=== PATIENT | female | born 1995 | race Caucasian/White ===

== ENCOUNTER → 2017-07-04 | Outpatient (CLI) | payer BC | END | disposition home or self-care (01) | LOC: C.PAPS 16:39 | PROVIDERS: ATTEND Physician Assistant | DX: Z01.419 Encounter for gynecological examination (general) (routine) without abnormal findings (principal) ==

== ENCOUNTER → 2017-07-04 | Outpatient (CLI) | payer BC ==
[2017-07-07 13:45] LABS: CHLAMYDIA TRACH RNA*** NOT DETECTED (NOT DETECTED); GC (NEIS GONORRHOEAE)RNA** NOT DETECTED (NOT DETECTED)
== END | disposition home or self-care (01) ==
LOC: C.LABSPEC 15:58
PROVIDERS: ATTEND Physician Assistant
DX: Z01.419 Encounter for gynecological examination (general) (routine) without abnormal findings (principal)

== ENCOUNTER → 2017-10-30 | Outpatient (CLI) | payer OTHER ==
--- NOTE | 2017-10-30 08:24 | DIAGNOSTIC IMAGING REPORT ---
ABDOMINAL ULTRASOUND, RIGHT UPPER QUADRANT HISTORY: Left upper quadrant pain. Epigastric pain. COMPARISON: None. FINDINGS: Liver is sonographically normal. The size of the spleen is normal, measuring 11.7 cm. There is no perisplenic fluid. The pancreas is within normal limits although the head and tail are slightly obscured. There is no biliary ductal dilatation. Common bile duct measures 3 mm in caliber. The gallbladder is normal. There are no gallstones. IMPRESSION: 1. No significant abnormality identified within the right upper quadrant. 2. Normal sonographic appearance of the spleen. Electronically signed by: Mendoza Green M.D. 10/30/2017 8:23 AM Dictated Date/Time: 10/30/2017 8:22 AM
== END | disposition home or self-care (01) ==
LOC: C.ULTR 07:40
PROVIDERS: ATTEND Physician Assistant
DX: R10.13 Epigastric pain (principal); R10.12 Left upper quadrant pain

== ENCOUNTER 2025-01-22 04:53 | Inpatient (IN) ==
[2025-01-22] MEDS ORDERED: OXYTOCIN 30 UNITS/NSS 30 UNITS/500 ML BAG IV PRN ×2 (05:33→08:49)
[2025-01-22] MEDS ORDERED: LIDOCAINE 1% LOCAL 20 ML VIAL INFIL PRN (05:33)
[2025-01-22] MEDS: LACTATED RINGER'S 1,000 ML IV PRN (05:50)
[2025-01-22 06:20] LABS: Creatinine Urine Random 256.6 mg/dl; Protein Creatinine Ratio Urine 0.2 (0-0.2); Total Protein Urine Random 50.8 mg/dl (0-11.9)
[2025-01-22 06:46] LABS: Hematocrit (blood only) 37.4 % (37.0-47.0); Hemoglobin 12.3 g/dl (12.0-16.0); Mean Corpuscular Hemoglobin 28.1 pg (25.0-34.0); Mean Corpuscular Hgb Conc 32.9 g/dL (32.0-36.0); Mean Corpuscular Volume 85.4 fL (80.0-100.0); Mean Platelet Volume 10.7 fL (9.4-12.4); Platelet Count 217 K/uL (130-400); RDW Coefficient of Variation 13.7 % (11.5-14.5); RDW Standard Deviation 42.5 fL (36.4-46.3); Red Blood Count 4.38 M/uL (4.20-5.40); White Blood Count 15.59 K/ul (4.8-10.8)
--- NOTE | 2025-01-22 06:54 | History & Physical Report ---
Date of Service January 22, 2025 Assessment & Plan (1) Encounter for supervision of normal intrauterine in primigravida, antepartum: (2) Heterozygous factor V Leiden mutation: Plan 30 yo G1 at 40 wga presents in labor Initial bp mild range, repeat wnl. Will get labs Fetus cat 1 Labor - augment prn GBS neg desires epidural Admission and Anticipated Discharge Date Admission Date: January 22, 2025 History of Present Illness Chief Complaint: labor Primary Care Provider: Melina Cortez MD 30 yo G1 at 40 wga presents w/ ctx increasing in frequency and intensity, vomiting. +FM; had a gush of fluid while vomiting but none since. 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 denies hx stis Allergies Allergy/AdvReac Type Severity Reaction Status Date / Time Penicillins Allergy Mild Hives Verified 01/22/25 05:23 Home Medications Medication Instructions Recorded Confirmed Type [id number] 1 tab PO DAILY 06/05/24 01/22/25 History [ Plus] Patient History Medical History (Updated 01/21/25 @ 16:23 by Betsy Traore RN) Factor V deficiency Skin lesion Scar conditions and fibrosis of skin Dysplasia of cervix, low grade (MEGHANA 1) LGSIL (low grade squamous intraepithelial dysplasia) Family history of factor V Leiden mutation Surgical History H/O colposcopy with cervical biopsy 2019, meghana 1 [place] teeth extracted Family History Father Myocardial infarction Hypertension Grandfather (Paternal) Myocardial infarction Mother Factor 5 Leiden mutation, heterozygous Aunt Factor 5 Leiden mutation, heterozygous Deep vein thrombosis Other Coronary heart disease Denies family history of Ovarian cancer Breast cancer Colorectal cancer Social History Smoking Status: Never smoker Do You Dip or Chew Tobacco: No; Hx Alcohol Use: No Hx Substance Use: No Preferred Language: Guinean Communication Ability: Effective 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: No Beliefs That Will Affect Care: None marital status: Single marital status details: FOB: Rishi Agudelodebora (29) [phone] Current Living Situation: Significant Other Current Living Situation Comment: Lives with FOB- no pets current occupational status: employed current occupation: [employer] Other Information That Helps Us Care for You: No Feels Safe at Home: Yes Safety Concerns: Feels Safe At This Time Assistive Devices: Contacts and Glasses Physical Exam Genitourinary: OB Exam Monitor Tracing: + external FHT monitor used, + external uterine monitor used (q4-5) and + category I (140/mod/+accel/-decel) SVE by rn 2/-2 Results & Data Vital Signs (Past 12 Hours) Vital Signs Temp Pulse Resp BP O2 Del Method 01/22/25 05:56 66 134/74 01/22/25 05:14 64 157/89 H 01/22/25 05:12 18 01/22/25 05:12 98.2 F 18 01/22/25 05:09 98.2 F 64 18 157/89 H Room Air Laboratory Results OB Labs: Blood Type A Negative 06/12/24 Antibody Screen NEGATIVE 11/03/24 Hgb 11.7 g/dl (12.0-16.0) L 11/03/24 Hct 35.7 % (37.0-47.0) L 11/03/24 MCV 86.3 fL (80.0-100.0) 06/12/24 Plt Count 226 K/uL (130-400) 06/12/24 Rubella IgG Antibody Immune (Immune) 06/12/24 Treponema pallidum Ab Negative (Negative) 11/03/24 Hep Bs Antigen Negative (Negative) 06/12/24 Hepatitis C Antibody Negative (Negative) 06/12/24 HIV 1&2 Ab/P24 Ag 4thGn Negative (Negative) 06/12/24 Glucose 1 Hr 50 gm 95 mg/dl (70-130) 11/03/24 OB Optional Labs: Chlamydia trachomatis RNA Not Detected (NotDetected) 06/12/24 Neisseria gonorrhoeae RNA Not Detected (NotDetected) 06/12/24 GBS neg Coding Level of Care Code None Diagnoses Encounter for supervision of normal intrauterine in primigravida, antepartum Z34.00 Heterozygous factor V Leiden mutation D68.51
[2025-01-22 06:56] LABS: Albumin Globulin Ratio 1.1 (0.9-2); Albumin Level 3.4 gm/dl (3.4-5.0); BUN Creatinine Ratio 15.4 (10-20); Bilirubin,Total 0.6 mg/dl (0.2-1.0); Calcium 8.6 mg/dl (8.6-10.3); Creatinine Clr Calc Pharmacy 144.6 ml/min; Potassium 3.9 mmol/L (3.5-5.1); Total Protein 6.4 gm/dl (6.0-8.3)
[2025-01-22] MEDS ORDERED: SODIUM CHLORIDE 0.9% 100 ML IV PRN ×2 (07:07→16:35)
[2025-01-22] MEDS: BUPIVACAINE 0.25% PF 30 ML VIAL ONE (07:38)
[2025-01-22] MEDS: SODIUM CHLORIDE 0.9% PF INJ 10 ML VIAL ONE (07:38)
[2025-01-22] MEDS: fentANYL 2 MCG/ML BUPIVacaine 0.125%-NSS 100ML BAG ONE (07:38)
[2025-01-22] MEDS ORDERED: NALOXONE HCL 1 MG in SODIUM CHLORIDE 0.9% 1,000 ML IV PRN ×2 (07:46→14:49)
[2025-01-22] MEDS ORDERED: NALBUPHINE HCL INJ 10 MG/ML AMP IV PRN ×2 (07:46→14:49)
[2025-01-22] MEDS ORDERED: ePHEDrine sulfate 50 MG/ML AMP IV PRN ×2 (07:46→14:49)
[2025-01-22] MEDS ORDERED: fentANYL 2 MCG/ML BUPIVacaine 0.125%-NSS 100ML BAG EPI PRN (07:46)
[2025-01-22] MEDS ORDERED: ONDANSETRON INJ 2 MG/ML 2 ML VIAL IV PRN ×2 (07:46→14:49)
[2025-01-22] MEDS ORDERED: LIDOCAINE 2% MPF LOCAL 5 ML VIAL EPI PRN (07:46)
[2025-01-22] MEDS ORDERED: diphenhydrAMINE 50 MG/ML VIAL IV PRN ×2 (07:46→14:49)
[2025-01-22] MEDS ORDERED: NALOXONE HCL 0.4 MG/1 ML VIAL/CARP IV PRN ×2 (07:46→14:49)
[2025-01-22] MEDS ORDERED: fentaNYL citrate PF 100 MCG/2 ML VIAL EPI PRN (07:46)
[2025-01-22] MEDS ORDERED: SODIUM CHLORIDE 0.9% PF INJ 10 ML VIAL EPI PRN (07:46)
[2025-01-22] MEDS ORDERED: BUPIVACAINE 0.25% PF 30 ML VIAL EPI PRN (07:46)
[2025-01-22] MEDS ORDERED: ROPIVACAINE 0.5% PF 5 MG/ML 20 ML VIAL EPI PRN (07:46)
--- NOTE | 2025-01-22 07:46 | Anesthesiology Consultation ---
Date of Service January 22, 2025 Assessment & Plan Chart Review Chart Review: Patient NOT seen in Pre Admission Testing and Acceptable Risk for Labor Epidural Consults Requested none ASA ASA2 Proposed Anesthesia Anesthesia Type: Labor Epidural Risk / Benefits Reviewed With: PT / POA / Parent / Guardian, Accepts Plan and Informed Consent Obtained History Height/Weight Height: 5 ft 3 in Weight: 100.698 kg Allergies Allergy/AdvReac Type Severity Reaction Status Date / Time Penicillins Allergy Mild Hives Verified 01/22/25 05:23 Medications Home Medications Medication Instructions Recorded Confirmed Last Taken [id number] 1 tab PO DAILY 06/05/24 01/22/25 01/21/25 21:00 [ Plus] Active Medications Generic Name Dose Route Start Last Admin Trade Name Freq PRN Reason Stop Dose Admin Lactated Ringer's 1,000 mls @ 125 mls/hr 01/22/25 05:33 01/22/25 07:02 Lr IV 01/23/25 05:32 125 mls/hr .Q8H PRN Administration L&D Protocol Protocol Past Medical History Medical History (Updated 01/21/25 @ 16:23 by Betsy Traore, ALYSSA) Factor V deficiency Skin lesion Scar conditions and fibrosis of skin Dysplasia of cervix, low grade (MEGHANA 1) LGSIL (low grade squamous intraepithelial dysplasia) Family history of factor V Leiden mutation Exercise / Class Metabolic Activity II 4-5 Yardwork/Stairs/Walk up hill Past Family History Family History Father Myocardial infarction Hypertension Grandfather (Paternal) Myocardial infarction Mother Factor 5 Leiden mutation, heterozygous Aunt Factor 5 Leiden mutation, heterozygous Deep vein thrombosis Other Coronary heart disease Denies family history of Ovarian cancer Breast cancer Colorectal cancer Past Surgical History Surgical History H/O colposcopy with cervical biopsy 2019, meghana 1 [place] teeth extracted Past Anesthesia History No Hx of Anesthesia Complications and No Family Hx of Anesthesia Complications History of PONV No Hx of PONV and No Hx of Motion Sickness Social History Smoking Status: Never smoker Do You Dip or Chew Tobacco: No Hx Alcohol Use: No Hx Substance Use: No substance use type: does not use Physical Exam Vital Signs Last Vital Signs Temp 36.9 C 01/22/25 07:03 Pulse 101 H 01/22/25 07:44 Resp 20 01/22/25 07:03 BP 100/60 01/22/25 07:44 Pulse Ox 99 01/22/25 07:42 O2 Del Method Room Air 01/22/25 05:09 ENMT Mouth: no dentition abnormality Thyromental Distance: > or= 3.5 Finger Breadths Mallampati Class: II Neck normal visual inspection Respiratory normal respiratory effort Auscultation: lungs clear to auscultation bilaterally Cardiovascular Rate/Rhythm: regular rate and regular rhythm Psychiatric Orientation: alert Testing Laboratory Results 01/22/25 05:49 01/22/25 05:49
--- NOTE | 2025-01-22 08:17 | Labor Progress Brief Note ---
Date of Service January 22, 2025 Subjective comfortable w/ epidural Assessment & Plan (1) Encounter for supervision of normal intrauterine in primigravida, antepartum: (2) Heterozygous factor V Leiden mutation: Plan 30 yo G1 at 40 wga presents in labor Initial bp mild range, repeat wnl. albs wnl Fetus cat 2but improved w/ repositioning and now reassuring Labor - augment prn, no forebag noted so suspect rom shortly before ctx worsened early this am as she had gush w/ vomiting GBS neg epidural in place Admission and Anticipated Discharge Date Admission Date: January 22, 2025 Physical Exam Genitourinary: Manual OB Exam: + cervical dilation 3 cm, + cervical effacement 80% and + station -2 OB Exam Monitor Tracing: + external FHT monitor used, + external uterine monitor used (q4-5) and + category II (140-145/mod/+accel/decel just occurred after epidural, recovered w/ reposit) Results & Data Vital Signs (Past 12 Hours) Vital Signs Temp Pulse Resp BP Pulse Ox O2 Del Method 01/22/25 08:12 67 100 01/22/25 08:07 73 100 01/22/25 08:02 78 100 01/22/25 08:00 62 18 98/52 L 01/22/25 07:57 76 100 01/22/25 07:55 75 97/54 L 01/22/25 07:52 93 H 99 01/22/25 07:50 82 20 100/54 L 01/22/25 07:47 99 H 100 01/22/25 07:45 20 01/22/25 07:45 20 01/22/25 07:44 101 H 100/60 01/22/25 07:42 101 H 97/56 L 99 01/22/25 07:40 90 18 105/61 01/22/25 07:38 100 H 108/65 01/22/25 07:37 97 H 99 01/22/25 07:36 86 114/68 01/22/25 07:34 78 121/70 01/22/25 07:32 89 100 01/22/25 07:27 84 100 01/22/25 07:04 67 124/67 01/22/25 07:03 20 01/22/25 07:03 98.4 F 20 01/22/25 05:56 66 134/74 01/22/25 05:14 64 157/89 H 01/22/25 05:12 18 01/22/25 05:12 98.2 F 18 01/22/25 05:09 98.2 F 64 18 157/89 H Room Air Coding Level of Care Code None Diagnoses Encounter for supervision of normal intrauterine in primigravida, antepartum Z34.00 Heterozygous factor V Leiden mutation D68.51
--- NOTE | 2025-01-22 10:40 | Communication Note ---
Date of Service: January 22, 2025 Patient had recurrent short decelerations she is ruptured membranes and presented in early labor for the previous provider she has epidural now her contraction pattern is somewhat hard to interpret so an IUPC is placed we will watch this carefully and determine if we can use Pitocin discussed the challenge of Pitocin if she is having decelerations with each contraction and that it may not be possible to use this
--- NOTE | 2025-01-22 10:53 | Communication Note ---
Date of Service: January 22, 2025 Contractions are 7 to 8 minutes apart and only some of them are adequate clearly she needs augmentation or we need to stop induction with each contraction she is having a heart rate deceleration as well and there is molding present I offered the option of Pitocin with the risk of aggravating the decelerations and the possibility of an emergency I also offered the option of stopping and performing a undercontrolled conditions while the baby is not in distress and she is clearly not an adequate labor now there are signs that this will not work out including the slow progress molding and lack of contractions I discussed the risks of I have left him some time to consider this they will let us know their decision section. The patient was counseled to the nature of the procedure including alternatives such as labor. Risks were discussed including bleeding infection injury to bowel bladder ureter vessels and even baby. Deep Vein thrombosis, pulmonary embolus discussed. Breakdown of incision reviewed. Deep vein thrombosis pulmonary embolus hernia and failure of the incision to heal were discussed Patient verbalized understanding of this and was given ample time to ask questions
[2025-01-22] MEDS: ACETAMINOPHEN 500 MG TAB PO SCH (11:29)
[2025-01-22] MEDS: LACTATED RINGER'S 1,000 ML IV SCH ×2 (11:37→14:05)
[2025-01-22] MEDS: ePHEDrine sulfate 50 MG/ML AMP ONE (11:50)
[2025-01-22] MEDS: fentaNYL citrate PF 100 MCG/2 ML VIAL ONE (11:50)
[2025-01-22] MEDS: BUPIVACAINE 0.25% PF 30 ML VIAL EPI STA (11:50)
[2025-01-22] MEDS: LIDOCAINE 2%/EPINEPHRINE 1:200,000 20 ML PF ONE (11:50)
[2025-01-22] MEDS: ACETAMINOPHEN 500 MG TAB ONE (11:51)
[2025-01-22] MEDS: CITRIC ACID/SODIUM CITRATE 15 ML UDC ONE (11:51)
[2025-01-22] MEDS: LIDOCAINE 2%/EPINEPHRINE 1:200,000 20 ML PF EPI STA (11:51)
[2025-01-22] MEDS: fentaNYL citrate PF 100 MCG/2 ML VIAL EPI STA (11:51)
[2025-01-22] MEDS: SODIUM CHLORIDE 0.9% PF INJ 10 ML VIAL EPI STA (11:51)
[2025-01-22] MEDS: AZITHROMYCIN 500 MG/255 ML BAG IV SCH (11:54)
[2025-01-22] MEDS: CITRIC ACID/SODIUM CITRATE 15 ML UDC PO SCH (12:21)
[2025-01-22] MEDS: ceFAZolin 3000MG 3,000 MG/72.5 ML BAG IV SCH (12:24)
[2025-01-22] MEDS ORDERED: ONDANSETRON INJ 2 MG/ML 2 ML VIAL ONE (12:30)
[2025-01-22] MEDS ORDERED: LIDOCAINE 2%/EPINEPHRINE 1:200,000 20 ML PF ONE (12:30)
[2025-01-22] MEDS ORDERED: OXYTOCIN 10 UNITS/ML VIAL ONE (12:44)
[2025-01-22] MEDS ORDERED: PHENYLEPHRINE HCL 10 MG/ML VIAL ONE (12:45)
[2025-01-22] MEDS ORDERED: MoRPHine SULFATE PF 1 MG/ML 10 ML AMP/VIAL ONE (12:48)
--- NOTE | 2025-01-22 13:27 | Operative Report ---
Post Operative Report Pre & Post Diagnosis Operation Date: 01/22/25 12:30 Pre-Op Diagnosis: primary section for intolerance to labor Post-Op Diagnosis: same I identified the patient and participated in the time-out.: Yes Procedure Operation Date: 01/22/25 12:30 Low segment transverse section Surgeon Kayla Gloria MD, FACOG Torpedo Shooter Maryam Enriquez Quantitative Blood Loss (QBL) 523 Findings Consistent with Post-Op Diagnosis Specimens Cord blood Cord gases Description of Procedure Regional anesthetic had been given by anesthesia patient was prepped and draped with a leftward tilt preoperative antibiotics had been given in appropriate timing by anesthesiology. Once the prep was allowed to fully dry timeout was performed. Pickups with teeth were used to test the incision area was found to be adequate for incision as the patient did not feel sharp pain. Scalpel was used to make a Pfannenstiel incision on the lower abdomen. We then cut through the subcutaneous fat down to the level of the anterior rectus sheath fascia this was cut in the midline and then extended laterally with the curved Monroy scissors. At this stage we then placed 2 Austin clamps on the anterior aspect of the fascia. Using the curved Monroy's we are able to dissect the fascia superiorly away from the rectus muscles. Care was taken to maintain hemostasis. Austin clamps were then placed to the inferior aspect of the anterior sheath of the fascia. Fascia was then dissected away from the rectus muscles inferiorly towards the pubic bone. A Austin was then placed in the midline both inferiorly and superiorly. This was to allow exposure by retraction rectus muscles were in the midline with were then able to cut through the peritoneum and then enter the peritoneal cavity. Opening was enlarged to allow exposure of the peritoneal cavity both superiorly and inferiorly. Once adequate space was obtained a bladder retractor was placed to expose the lower segment Metzenbaums were used to dissect the bladder flap inferiorly away from the uterus. This was done sharply bladder retractor was then repositioned to expose the lower segment of the uterus Fresh scalpel was used to make a low transverse incision on the uterus. Uterus was then entered bluntly with the operators finger, membranes ruptured and the opening was enlarged using the operators fingers bluntly pulling superiorly and inferiorly to allow exposure. Baby was delivered by first flexion of the head elevation of the head out of the pelvis and then pressure by the assistant cross country coach on the maternal abdomen. Baby's head was then delivered mouth and then nares were suctioned and then using gentle traction the baby was fully delivered. Live vigorous infant. Fluid was clear cord clamped and cut cord gases obtained cord blood obtained baby handed to pediatrics. Placenta removed was removed with traction we ensure the entire placenta was removed with a moist lap sponge into the uterus Uterus was then exteriorized. IV Pitocin had been started by anesthesia tone improved there were no extensions the uterus was then closed using 0 Monocryl in a 2 layer closure the first layer closed in a running locked fashion from left to right and then a second closure from left to right in a running nonlocked fashion. At this stage hemostasis was excellent. Uterus was placed back in the peritoneal cavity with suction irrigation out and inspection of the uterus at this stage revealed excellent hemostasis Retractors were removed urine color was clear at this stage of the case we inspected the rectus muscles they were hemostatic fascia was closed with 0 Vicryl subcutaneous fat was irrigated and closed with 3-0 Vicryl skin closed with 4-0 subcuticular Monocryl Adnexa appeared normal as did uterus I attest to the content of the Intraoperative Record and any orders documented therein. Any exceptions are noted below. OB Procedure Charges [id number]
[2025-01-22] MEDS ORDERED: CALCIUM CARBONATE 500 MG CHEWABLE TAB PO PRN (13:40)
[2025-01-22] MEDS ORDERED: HYDROCORTISONE ACETATE 25 MG SUPP PR PRN (13:40)
[2025-01-22] MEDS ORDERED: SENNA 8.6 MG TAB PO PRN (13:40)
[2025-01-22] MEDS ORDERED: MAGNESIUM HYDROXIDE SUSP 30 ML UDC PO PRN (13:40)
[2025-01-22] MEDS ORDERED: BENZOCAINE 20% SPRY 85 APPLN/85 GM CAN EXT PRN (13:40)
[2025-01-22] MEDS: OXYTOCIN 20 UNITS/LR 1,002 ML IV SCH (13:44)
[2025-01-22] MEDS: KETOROLAC 30 MG/ML VIAL IV SCH (13:49)
[2025-01-22 14:19] LABS: Base Excess Cord Arterial Bld -4.4 mEq/L (-9-1.8); CO2 Cord Arterial Blood 65 mmHg (39.1-73.5); HCO3 Cord Arterial Blood 25 mmol/L (19.7-28.5); Oxygen Sat Cord Arterial Blood < 60.0 % (<60); PO2 Cord Arterial Blood < 20 mmHg (4.1-31.7)
[2025-01-22 14:22] LABS: Base Excess Cord Venous Blood -5.7 mEq/L (-7.7-1.9); Cord Venous Blood HCO3 21 mmol/L (18.4-26.8); Cord Venous Blood PCO2 45 mmHg (30.4-57.2); Cord Venous Blood PO2 22 mmHg (14.1-43.3); Cord Venous Blood pH 7.28 (7.20-7.44); O2 Saturation Cord Venous Bld < 60.0 % (<68)
[2025-01-22] MEDS ORDERED: MEPERIDINE HCL 25 MG/ML CARP/VIAL IV PRN (14:49)
[2025-01-22] MEDS ORDERED: oxyCODONE HCL IR 5 MG TAB (IMMEDIATE RELEASE) PO PRN (14:49)
[2025-01-22] MEDS ORDERED: MoRPHine SULFATE 2 MG/ML CARP IV PRN (14:49)
[2025-01-22] MEDS ORDERED: PROMETHAZINE 6.25 MG/50.25 ML BAG IV PRN (14:49)
[2025-01-22] MEDS ORDERED: HYDROmorphone INJ 0.5 MG/0.5 ML SYR IV PRN (14:49)
[2025-01-22] MEDS ORDERED: NALOXONE HCL 0.08 MG in SYRINGE 1.8 ML IV PRN (14:49)
--- NOTE | 2025-01-22 14:51 | Anesthesia Procedure Note ---
Date of Service January 22, 2025 Anesthesia Post Epidural Note Vital Signs Vital Signs: Temp Pulse Resp BP Pulse Ox O2 Del Method 37.2 C 71 18 103/56 L 98 Room Air 01/22/25 13:33 01/22/25 14:50 01/22/25 14:28 01/22/25 14:50 01/22/25 14:50 01/22/25 05:09 Notes Mental Status: alert / awake / arousable Nausea / Vomiting: adequately controlled Pain: adequately controlled Airway Patency, RR, SpO2: stable & adequate BP & HR: stable & adequate Hydration State: stable & adequate Neuraxial Anesthesia: was administered and sensory block is resolving Anesthetic Complications: no major complications apparent and Pt Satisfied with anesthetic care Epidural: Removed without complications and With tip intact
--- NOTE | 2025-01-22 14:52 | Anesthesiology Progress Note ---
Date of Service January 22, 2025 Anesthesia Post Procedure Vital Signs Vital Signs: Temp Pulse Resp BP Pulse Ox O2 Del Method 01/22/25 14:50 71 103/56 L 98 01/22/25 14:45 73 99 01/22/25 14:42 61 92/54 L 01/22/25 14:40 67 99 01/22/25 14:38 70 99 01/22/25 14:35 70 99 01/22/25 14:30 74 90/51 L 98 01/22/25 14:28 77 18 97 01/22/25 14:25 77 97 01/22/25 14:22 73 92/50 L 01/22/25 14:21 76 91 01/22/25 14:20 76 71/49 L 98 01/22/25 14:18 77 18 97 01/22/25 14:15 74 100 01/22/25 14:10 100 01/22/25 14:10 75 01/22/25 14:10 70 89/46 L 01/22/25 14:05 76 100 01/22/25 14:00 76 88/49 L 99 01/22/25 13:55 71 100 01/22/25 13:50 79 101/48 L 100 01/22/25 13:48 71 20 100 01/22/25 13:45 76 100 01/22/25 13:41 74 99/46 L 01/22/25 13:40 73 100 01/22/25 13:35 84 100 01/22/25 13:33 37.2 C 79 18 101/48 L 100 01/22/25 13:33 76 93/42 L 01/22/25 13:30 78 100 01/22/25 12:27 87 100 01/22/25 12:22 90 100 01/22/25 12:19 81 116/64 01/22/25 12:17 87 99 01/22/25 12:12 103 H 100 01/22/25 12:07 71 99 01/22/25 12:03 67 120/58 L 01/22/25 12:02 70 100 01/22/25 11:57 70 100 01/22/25 11:52 86 100 01/22/25 11:48 67 126/68 01/22/25 11:47 65 100 01/22/25 11:42 73 100 01/22/25 11:37 92 H 100 01/22/25 11:33 73 130/61 01/22/25 11:32 80 100 01/22/25 11:30 18 01/22/25 11:30 18 01/22/25 11:27 99 H 100 01/22/25 11:22 77 100 01/22/25 11:18 90 130/60 01/22/25 11:17 89 100 01/22/25 11:12 82 100 01/22/25 11:07 85 99 01/22/25 11:03 103 H 124/61 01/22/25 11:02 98 H 100 01/22/25 10:57 81 100 01/22/25 10:52 93 H 100 01/22/25 10:48 98 H 117/61 01/22/25 10:47 96 H 100 01/22/25 10:42 78 100 01/22/25 10:37 70 100 01/22/25 10:33 70 106/58 L 01/22/25 10:32 84 100 01/22/25 10:27 62 100 01/22/25 10:22 87 100 01/22/25 10:17 63 100 01/22/25 10:12 79 100 01/22/25 10:07 88 100 01/22/25 10:02 75 100 01/22/25 09:57 73 100 01/22/25 09:52 70 100 01/22/25 09:48 75 115/53 L 01/22/25 09:47 67 100 01/22/25 09:42 81 100 01/22/25 09:37 68 100 01/22/25 09:33 93 H 137/57 L 01/22/25 09:32 105 H 99 01/22/25 09:30 20 01/22/25 09:30 36.9 C 20 01/22/25 09:27 82 99 01/22/25 09:22 67 100 01/22/25 09:19 66 111/62 01/22/25 09:17 74 98 01/22/25 09:12 82 100 01/22/25 09:07 66 100 01/22/25 09:03 66 107/58 L 01/22/25 09:02 62 99 01/22/25 09:00 20 01/22/25 09:00 20 01/22/25 08:57 91 H 100 04/10/25 08:52 69 100 01/22/25 08:48 65 116/60 01/22/25 08:47 65 99 01/22/25 08:42 65 100 01/22/25 08:37 80 100 01/22/25 08:33 63 116/57 L 01/22/25 08:32 63 100 01/22/25 08:30 18 01/22/25 08:30 18 01/22/25 08:27 65 100 01/22/25 08:22 74 100 01/22/25 08:20 64 104/56 L 01/22/25 08:17 93 H 100 01/22/25 08:12 67 100 01/22/25 08:07 73 100 01/22/25 08:02 78 100 01/22/25 08:00 62 18 98/52 L 01/22/25 07:57 76 100 01/22/25 07:55 75 97/54 L 01/22/25 07:52 93 H 99 01/22/25 07:50 82 20 100/54 L 01/22/25 07:47 99 H 100 01/22/25 07:45 20 01/22/25 07:45 20 01/22/25 07:44 101 H 100/60 01/22/25 07:42 101 H 97/56 L 99 01/22/25 07:40 90 18 105/61 01/22/25 07:38 100 H 108/65 01/22/25 07:37 97 H 99 01/22/25 07:36 86 114/68 01/22/25 07:34 78 121/70 01/22/25 07:32 89 100 01/22/25 07:27 84 100 01/22/25 07:04 67 124/67 01/22/25 07:03 20 01/22/25 07:03 36.9 C 20 01/22/25 05:56 66 134/74 01/22/25 05:14 64 157/89 H 01/22/25 05:12 18 01/22/25 05:12 36.8 C 18 01/22/25 05:09 36.8 C 64 18 157/89 H Room Air Transfer of Care Handoff Completed per policy Notes Mental Status: alert / awake / arousable Patient Amnestic to Procedure: Yes Nausea / Vomiting: adequately controlled Pain: adequately controlled Airway Patency, RR, SpO2: stable & adequate BP & HR: stable & adequate Hydration State: stable & adequate Neuraxial Anesthesia: was administered and sensory block is resolving Anesthetic Complications: no major complications apparent
[2025-01-22] MEDS ORDERED: DC INTRASPINAL MORPHINE SCH (15:00)
[2025-01-22] MEDS ORDERED: NO NARCOTICS OR SEDATIVES SCH (15:00)
[2025-01-22] MEDS: DIPHTHER/TETAN/PERTUS Vaccine (Tdap, Adol/Adult) 0.5mL IM ONE (17:38)
[2025-01-22] MEDS: SIMETHICONE 80 MG CHEW PO SCH (19:03)
[2025-01-22] MEDS: DOCUSATE SODIUM 100 MG CAP PO SCH (19:53)
[2025-01-22] MEDS: ACETAMINOPHEN 325 MG TAB PO SCH (19:53)
[2025-01-22] MEDS: LACTATED RINGER'S 1,000 ML IV ONE (22:22)
--- NOTE | 2025-01-23 05:57 | Obstetrical Progress Note ---
Date of Service January 23, 2025 Assessment & Plan (1) Need for rhogam due to Rh negative mother: (2) Heterozygous factor V Leiden mutation: (3) examination following delivery: Plan Pt is 30 yo post- day 1 s/p CS at 40w. complicated by Rh negative and factor V, not taking anticoagulation. - Encourage ambulation and breast feeding - Pain control with tylenol, ibuprofen and oxycodone - Likely DC on 01/24 or 01/25 Admission and Anticipated Discharge Date Admission Date: January 22, 2025 Supervising Physician Co-Signing Physician Notes Resident Physician Supervision Note: I was present with Dr. Augustin during the history and exam. I discussed the case with the resident and agree with the findings and plan as documented in the note. Any exceptions or clarifications are listed here: [None] Documented By: Kayla Gloria MD, FACOG Subjective Pt is 30 yo post- day 1 s/p CS at 40w. complicated by Rh negative and factor V, not taking anticoagulation. Ambulation:In and out of room Voiding:voiding normally Passing gas: yes BM: no Diet tolerance:regular diet Lochia:bloody, no clots Feeding type: breast Current pain level: 1-3 /10 improved with ibuprofen Resting comfortably this morning in NAD. Denies PATEL, CP, SOB, N/V/D, LE pain/swelling. Review of Systems Review of Systems: As per HPI Physical Exam Constitutional: WD/WN, vitals as above Respiratory: normal respiratory effort, lungs clear to auscultation Cardiovascular: RRR, no murmur, no edema Gastrointestinal (Abdomen): normal bowel sounds, soft, nontender, no hepatosplenomegaly Uterine fundus firm and at level of umbilicus Incision is clean, dry and well approximated. Small dried blood discharge. Steri strips in place Neurologic: PERRL, EOMI, accommodation nl, no face palsy, no dysarthria Moving all 4 extremities on command Psychiatric: A+Ox3, euthymic affect Results & Data Vital Signs (Past 12 Hours) Vital Signs Temp Pulse Resp BP Pulse Ox O2 Del Method 01/23/25 03:01 36.7 C 69 16 101/66 96 Room Air 01/23/25 02:36 16 99 04/11/25 01:00 18 99 01/23/25 00:00 16 98 01/22/25 23:10 16 96 01/22/25 23:09 36.5 C 61 16 110/75 96 Room Air 01/22/25 22:26 14 98 01/22/25 21:30 16 97 01/22/25 20:20 18 98 01/22/25 19:40 16 99 01/22/25 19:04 36.6 C 71 18 106/71 98 Room Air 01/22/25 19:03 18 100 01/22/25 18:45 16 100 Resident Activity Tracking Resident Involvement: Resident Care Provided Care Provided: OB Delivery
[2025-01-23 06:54] LABS: Basophils # (auto) 0.04 K/uL (0.00-0.20); Basophils % (auto) 0.4 %; Eosinophils # (auto) 0.05 K/uL (0.00-0.50); Eosinophils % (auto) 0.5 %; Hematocrit (blood only) 28.3 % (37.0-47.0); Hemoglobin 9.3 g/dl (12.0-16.0); Immature Granulocytes # (auto) 0.05 K/uL (0.01-0.20); Immature Granulocytes % (auto) 0.5 %; Lymphocytes # (auto) 1.89 K/uL (1.20-3.40); Lymphocytes % (auto) 17.7 %; Mean Corpuscular Hemoglobin 28.4 pg (25.0-34.0); Mean Corpuscular Hgb Conc 32.9 g/dL (32.0-36.0); Mean Corpuscular Volume 86.5 fL (80.0-100.0); Mean Platelet Volume 10.9 fL (9.4-12.4); Monocytes # (auto) 0.89 K/uL (0.11-0.59); Monocytes % (auto) 8.3 %; Neutrophils # (auto) 7.77 K/uL (1.40-6.50); Neutrophils % (auto) 72.6 %; Platelet Count 158 K/uL (130-400); RDW Coefficient of Variation 13.9 % (11.5-14.5); RDW Standard Deviation 44.1 fL (36.4-46.3); Red Blood Count 3.27 M/uL (4.20-5.40); White Blood Count 10.69 K/ul (4.8-10.8)
[2025-01-23] MEDS: FERROUS SULFATE 325 MG TAB PO SCH (08:16)
[2025-01-23] MEDS: PRENATAL VITAMIN 1 TAB PO SCH (08:16)
[2025-01-23] MEDS ORDERED: ONDANSETRON INJ 2 MG/ML 2 ML VIAL IV PRN (08:50)
[2025-01-23] MEDS ORDERED: diphenhydrAMINE Capsule 25 MG CAP PO PRN (08:50)
[2025-01-23] MEDS ORDERED: oxyCODONE HCL IR 5 MG TAB (IMMEDIATE RELEASE) PO PRN (08:50)
[2025-01-23] MEDS ORDERED: diphenhydrAMINE 50 MG/ML VIAL IV PRN (08:50)
[2025-01-23] MEDS ORDERED: HYDROmorphone INJ 0.5 MG/0.5 ML SYR IV PRN (08:50)
[2025-01-23] MEDS ORDERED: PROMETHAZINE 12.5 MG/50.5 ML BAG IV PRN (08:50)
[2025-01-23] MEDS ORDERED: KETOROLAC 30 MG/ML VIAL IV PRN (13:24)
[2025-01-23] MEDS: IBUPROFEN 600 MG TAB PO SCH (13:24)
[2025-01-23] MEDS: bisacodyL 5 MG TABEC PO SCH (20:30)
[2025-01-23] MEDS: MoRPHine SULFATE PF 1 MG/ML 10 ML AMP/VIAL INT SPINAL ONE (20:32)
[2025-01-23] MEDS: LACTATED RINGER'S 1,000 ML IV SCH (20:54)
[2025-01-23 22:14] VITALS: O2SAT 99
--- NOTE | 2025-01-24 06:17 | Obstetrical Progress Note ---
Date of Service January 24, 2025 Assessment & Plan (1) Need for rhogam due to Rh negative mother: (2) Heterozygous factor V Leiden mutation: (3) examination following delivery: Plan Pt is 30 yo post- day 2 s/p CS at 40w. complicated by Rh negative and factor V, not taking anticoagulation. - Encourage ambulation and breast feeding - Pain control with tylenol and ibuprofen - Discharge today Admission and Anticipated Discharge Date Admission Date: January 22, 2025 Supervising Physician Co-Signing Physician Notes Resident Physician Supervision Note: I interviewed and examined the patient. Discussed with Dr. Augustin and agree with findings and plan as documented in the note. Any exceptions or clarifications are listed here: FVL hetero, no need for lovenox per heme. Recovered well, d/c home. Documented By: Stacie Hart MD, FACOG Subjective Pt is 30 yo post- day 2 s/p CS at 40w. complicated by Rh negative and factor V, not taking anticoagulation. Ambulation:In room Voiding:voiding normally Passing gas: yes BM: no Diet tolerance:regular diet Lochia:bloody, no clots Feeding type: breast Current pain level: 2-4 /10 improved with ibuprofen and ibuprofen Resting comfortably this morning in NAD. Denies PATEL, CP, SOB, N/V/D, LE pain/swelling. Review of Systems Review of Systems: As per HPI Physical Exam Constitutional: WD/WN, vitals as above Respiratory: normal respiratory effort, lungs clear to auscultation Cardiovascular: RRR, no murmur, no edema Gastrointestinal (Abdomen): normal bowel sounds, soft, nontender, no hepatosplenomegaly Uterine fundus is firm and 1-2 cm below umbilicus Incision is clean, dry and well approximated. Steri strips in place Neurologic: PERRL, EOMI, accommodation nl, no face palsy, no dysarthria Psychiatric: A+Ox3, euthymic affect Results & Data Vital Signs (Past 12 Hours) Vital Signs Temp Pulse Resp BP Pulse Ox O2 Del Method 01/24/25 01:30 36.9 C 76 18 129/57 L 99 Room Air 01/23/25 19:40 36.8 C 90 18 128/84 99 Room Air Resident Activity Tracking Resident Involvement: Resident Care Provided Care Provided: OB Delivery
[2025-01-24 07:23] LABS: Hematocrit (blood only) 28.5 % (37.0-47.0); Hemoglobin 9.2 g/dl (12.0-16.0)
[2025-01-24 09:39] VITALS: RESP 14; TEMP 97.7
[2025-01-24 12:50] VITALS: BP 129/57; PULSE 69
[2025-01-24] MEDS ORDERED: bisacodyL 10 MG SUPP PR PRN (13:24)
[2025-01-24] MEDS ORDERED: IBUPROFEN 600 MG TAB PO PRN (13:24)
[2025-01-24] MEDS ORDERED: ACETAMINOPHEN 325 MG TAB PO PRN (19:24)
== END 2025-01-24 12:30 | disposition home or self-care (01) | DRG 787 ==
LOC: OPB 04:53 → 4S1 04:56 → 4E2 16:37